=== PATIENT | male | born 1990 | race Caucasian/White ===

== ENCOUNTER 2017-11-07 01:00 | Emergency (ER) | payer SELFPAY ==
--- NOTE | 2017-11-07 01:20 | EDM.PDOC ---
ED HPI GENERAL MEDICAL PROBLEM - General Chief Complaint: Genitourinary Problem Stated Complaint: MALE PROBLEMS Time Seen by Provider: 11/07/17 01:10 - History of Present Illness INITIAL COMMENTS - FREE TEXT/NARRATIVE: HISTORY AND PHYSICAL: History of present illness: Patient 27-year-old male who presents with a concern of penile injury he is uncircumcised and has a excoriated superficial laceration just inferior to his urethra meatus on the volar aspect metacarpal having vigorous intercourse tonight. Review of systems: As per history of present illness and below otherwise all systems reviewed and negative. Past medical history: As per history of present illness and as reviewed below otherwise noncontributory. Surgical history: As per history of present illness and as reviewed below otherwise noncontributory. Social history: No reported history of drug or alcohol abuse. Family history: As per history of present illness and as reviewed below otherwise noncontributory. Physical exam: HEENT: Atraumatic, normocephalic, pupils reactive, negative for conjunctival pallor or scleral icterus, mucous membranes moist, throat clear, neck supple, nontender, trachea midline. Lungs: Clear to auscultation, breath sounds equal bilaterally, chest nontender. Heart: S1S2, regular, negative for clicks, rubs, or JVD. Abdomen: Soft, nondistended, nontender. Negative for masses or hepatosplenomegaly. Negative for costovertebral tenderness. Pelvis: Stable nontender. Genitourinary: Patient has no hematoma no shaft tenderness to palpation no deformity crepitation but does have approximately quarter centimeter superficial laceration inferior to his urethral meatus. Rectal: Deferred. Extremities: Atraumatic, negative for cords or calf pain. Neurovascular unremarkable. Neuro: Awake, alert, oriented. Cranial nerves II through XII unremarkable. Cerebellum unremarkable. Motor and sensory unremarkable throughout. Exam nonfocal. Diagnostics: None Therapeutics: Wound was scrubbed irrigated and bacitracin was applied Impression: #1 penile injury Definitive disposition and diagnosis as appropriate pending reevaluation and review of above. penis Pain Score (Numeric/FACES): 7 - Related Data Allergies Allergy/AdvReac Type Severity Reaction Status Date / Time No Known Allergies Allergy Verified 11/07/17 01:03 Home Meds: Home Meds . [No Known Home Meds] 11/07/17 [History] ED ROS GENERAL - Review of Systems Review Of Systems: ROS reveals no pertinent complaints other than HPI. ED EXAM, GENERAL - Physical Exam Exam: See Below (See dictation) Course - Vital Signs Text/Narrative:: I discussed case with urology on-call Dr. Saldivar who agrees with follow-up this afternoon in the office I discussed also the patient had a concern about having her pop that in the absence of hematoma shaft tenderness any deformity or other findings apart from the wound. Any further diagnostics will be as per evaluation with urology this afternoon I discussed all the above with patient who agrees Last Recorded V/S: Last Vital Signs Temp 35.8 C 11/07/17 01:04 Pulse 105 H 11/07/17 01:04 Resp 16 11/07/17 01:04 BP 140/96 H 11/07/17 01:04 Pulse Ox 96 11/07/17 01:04 Departure - Departure Time of Disposition: 01:22 Disposition: Home, Self-Care 01 Condition: Good Clinical Impression: Penis injury - Discharge Information Additional Instructions: The following information is given to patients seen in the emergency department who are being discharged to home. This information is to outline your options for follow-up care. We provide all patients seen in our emergency department with a follow-up referral. The need for follow-up, as well as the timing and circumstances, are variable depending upon the specifics of your emergency department visit. If you don't have a primary care physician on staff, we will provide you with a referral. We always advise you to contact your personal physician following an emergency department visit to inform them of the circumstance of the visit and for follow-up with them and/or the need for any referrals to a consulting specialist. The emergency department will also refer you to a specialist when appropriate. This referral assures that you have the opportunity for followup care with a specialist. All of these measure are taken in an effort to provide you with optimal care, which includes your followup. Under all circumstances we always encourage you to contact your private physician who remains a resource for coordinating your care. When calling for followup care, please make the office aware that this follow-up is from your recent emergency room visit. If for any reason you are refused follow-up, please contact the [facility] emergency department at and asked to speak to the emergency department charge nurse. [facility] Specialty Care - Urology [facility] [place] [address] Bacitracin as directed follow-up today with urology[ called this a.m. for appointment this afternoon and as needed as discussed]
[2017-11-07] MEDS ORDERED: Bacitracin Oint 1 GM U/D Packet ONE (01:21)
[2017-11-07] MEDS ORDERED: Bacitracin Oint 1 GM U/D Packet TOP ONE (01:23)
== END 2017-11-07 01:34 | disposition home or self-care (01) ==
LOC: MW.ED 01:00
DX: S31.21XA Laceration without foreign body of penis, initial encounter (principal); X58.XXXA Exposure to other specified factors, initial encounter
CPT/HCPCS: 99283